=== PATIENT | female | born 2005 | race Hispanic/Latino ===

== ENCOUNTER 2025-03-13 21:07 | Emergency (ER) | payer SELFPAY ==
[~2025-03-13] VITALS: Ht 162.6 cm; Wt 57.2 kg
[2025-03-13 21:25] LABS: APPEARANCE,URINE CLEAR (CLEAR); GLUCOSE, URINE (UA) NEGATIVE (NEGATIVE); LEUKOCYTE ESTERASE ,URINE NEGATIVE Leu/uL (NEGATIVE); NITRATE,URINE NEGATIVE (NEGATIVE); OCCULT BLOOD,URINE NEGATIVE (NEGATIVE)
[2025-03-13 21:27] LABS: ADD UA MICROSCOPIC NO
[2025-03-13 21:28] LABS: HCG,QUALITATIVE URINE NEGATIVE (NEGATIVE)
[2025-03-13] MEDS: 0.9%NACL 1000ML 1,000 ML IV ONE (21:42)
[2025-03-13 21:44] LABS: IMMATURE GRANULOCYTE ABSOLUTE 0.04 K/uL (0-1); NUCLEATED RED BLOOD CELLS 0.0 % (0.0-0.19); PLATELET COUNT (AUTO) 281 K/uL (130-400); RED BLOOD CELL COUNT(AUTO) 4.56 MIL/uL (4.00-5.50); RED CELL DISTRIBUTION WIDTH 12.8 % (11.0-15.5); WHITE BLOOD COUNT (AUTO) 11.4 K/uL (4.8-10.8)
[2025-03-13 21:51] LABS: CREATININE 0.6 mg/dL (0.5-1.0); GLOMERULAR FILTR. RATE CALC 132.0 mL/min (>90); GLUCOSE,RANDOM 125.0 mg/dL (70-105); SODIUM SERUM 137.0 mmol/L (136-145); UREA NITROGEN, BLOOD 9.0 mg/dL (7-18)
--- NOTE | 2025-03-13 22:10 | ERN ---
ED Note History of Present Illness Stated Complaint: C/O LOWER ABD PAIN W/LOWER BACK PAIN Chief Complaint: Abdominal Pain Time Seen by MD: 21:10 Time Seen by Midlevel: 21:10 Dictation: The patient is a 20-year-old female with no past medical history who presents to the emergency department with complaints of suprapubic abdominal pain associated with nausea and constipation onset a week ago. Patient denies any vomiting, denies any fevers. Denies any urinary discomfort. Reports he had a bowel movement yesterday. Allergies: Coded Allergies: No Known Drug Allergies (Unverified Allergy, Unknown, 03/13/25) Past Medical History Past Medical History: No Pertinent History Surgical History: None LMP: Feb 23, 2025 RN Note Reviewed/Agreed w/PFSH: Yes Review of System Dictation Constitutional: Negative for fever,chills, and weight loss Eyes: Negative for injury, pain,redness, and discharge ENT: Negative for injury,pain or swelling Cardiovascular: Negative for chest pain, palpitations, and edema Respiratory: Negative for shortness of breath, cough, and wheezing, Abdomen/GI: Negative for vomiting, diarrhea, positive for abdominal pain, nausea, constipation Back: Negative for injury and pain : Negative for injury, bleeding and discharge MS/Extremity: Negative for injury and deformity Skin: Negative for rash, and discoloration Neuro: Negative for headache, weakness, numbness, tingling, and seizure Psych: Negative for suicide ideation, homicidal ideation, and hallucinations Initial Vital Sign VS Vital Signs Date Time Temp Pulse Resp B/P (MAP) Pulse Ox O2 Delivery O2 Flow Rate FiO2 03/13/25 21:10 98.6 91 20 137/77 100 Room Air 03/13/25 21:21 0 21 Physical Exam Dictation Vital Signs reviewed General Appearance: Alert, oriented x 3, no acute distress, well developed, nourished. Head and Face: non-traumatic. Eyes: PERRL, pink conjunctivas, eyelid no trauma, anterior chamber with arcus senilis. Ears: Pinnas intact and no signs of trauma or erythema ear canals clear and no discharge TM no erythema Nose: No discharge, no bleeding. Oropharynx: Mouth normal, tongue pink. pharynx clear,no erythema, tonsils no exudates, no abscesses noted, mucous membrane moist Neck: Supple, non-tender, no thyromegaly, no masses, no JVD, no bruits Breast:Deferred Chest:No tenderness, no crepitus, no paradoxical movement, no retractions Lungs:Clear, well-ventilated, symmetric, no rales, no wheezing, no rhonchi, no stridor, good breath sounds bilaterally Heart: Regular rate, regular rhythm, no murmur, no gallops Vascular: no peripheral edema, Abdomen: Soft, positive bowel sounds, nondistended, no guarding, nontender, no rebound, no masses no hepatomegaly, no splenomegaly, no Pryor's sign, no hernias. Rectal: Deferred Genital: Deferred Neurological: Normal speech, motor function intact, sensory function intact Musculoskeletal: Neck nontender, full range of motion, back nontender, full range of motion, Extremities: nontender, full range of motion Skin: Color pink, dry, no turgor, no rash, no lacerations, no abrasions, no contusions. Lymphatic: Deferred Results (Laboratory/Radiology) Laboratory/Radiology Laboratory Tests Test 03/13/25 21:15 03/13/25 21:30 Urine Color COLORLESS (YELLOW) Urine Appearance CLEAR (CLEAR) Urine pH 7.0 (5.0-8.0) Urine Specific [place] 1.004 (1.001-1.031) Urine Protein NEGATIVE mg/dL (NEGATIVE) Urine Glucose (UA) NEGATIVE mg/dL (NEGATIVE) Urine Ketones NEGATIVE mg/dL (NEGATIVE) Urine Occult Blood NEGATIVE (NEGATIVE) Urine Nitrate NEGATIVE (NEGATIVE) Urine Bilirubin NEGATIVE mg/dL (NEGATIVE) Urine Urobilinogen 0.2 mg/dL (0.2-1.0) Urine Leukocyte Esterase NEGATIVE Barb/uL Urine HCG, Qualitative NEGATIVE (NEGATIVE) White Blood Count 11.4 K/uL (4.8-10.8) H Red Blood Count 4.56 MIL/uL (4.00-5.50) Hemoglobin 13.2 g/dL (12.0-16.0) Hematocrit 40.3 % (36-48) Mean Corpuscular Volume 88.4 fL (80-100) Mean Corpuscular Hemoglobin 28.9 pg (27.0-33.0) Mean Corpuscular Hemoglobin Concent 32.8 g/dL (32.0-36.0) Red Cell Distribution Width 12.8 % (11.0-15.5) Platelet Count 281 K/uL (130-400) Mean Platelet Volume 11.7 fL (7.5-10.5) H Immature Granulocyte % (Auto) 0.4 % (0-1) Neutrophils (%) (Auto) 55.3 % (40.0-77.0) Lymphocytes (%) (Auto) 27.0 % (21.0-51.0) Monocytes (%) (Auto) 8.3 % (3.0-13.0) Eosinophils (%) (Auto) 8.4 % (0.0-8.0) H Basophils (%) (Auto) 0.6 % (0.0-5.0) Neutrophils # (Auto) 6.3 K/uL (1.8-7.7) Lymphocytes # (Auto) 3.1 K/uL (1.0-4.8) Monocytes # (Auto) 1.0 K/uL (0.1-1.0) Eosinophils # (Auto) 0.96 K/uL (0.00-0.70) H Basophils # (Auto) 0.07 K/uL (0.00-0.20) Absolute Immature Granulocyte (auto 0.04 K/uL (0-1) Nucleated Red Blood Cells 0.0 % (0.0-0.19) Sodium Level 137 mmol/L (136-145) Potassium Level 3.3 mmol/L (3.5-5.1) L Chloride Level 101 mmol/L (101-111) Carbon Dioxide Level 31 mmol/L (21-32) Blood Urea Nitrogen 9 mg/dL (7-18) Creatinine 0.6 mg/dL (0.5-1.0) Glomerular Filtration Rate Calc 132 mL/min (>90) Random Glucose 125 mg/dL (70-105) H Total Calcium 9.1 mg/dL (8.5-10.1) REASON: suprapubic abd pain ORDERING PHYSICIAN: KE RANKIN PROCEDURE: PELVCOMP - US PELVIC NON-OB COMP EXAM: US Pelvis, Complete. CLINICAL HISTORY: Suprapubic abdominal pain. TECHNIQUE: Transabdominal and transvaginal pelvic ultrasound with image documentation. COMPARISON: None provided. FINDINGS: UTERUS: 9.2 ??? 4.3 ??? 7.0 cm. Normal in size and appearance. No uterine fibroid or other focal lesion. ENDOMETRIUM: Thickness 9 mm. Within normal limits. RIGHT OVARY: 2.5 ??? 1.8 ??? 2.9 cm. Normal Doppler flow. Simple cyst measuring 3.3 ??? 4.3 ??? 2.5 cm. LEFT OVARY: 2.5 ??? 2.2 ??? 2.3 cm. Normal Doppler flow. No abnormal mass. CUL-DE-SAC: No free fluid. IMPRESSION: No acute abnormality. Right ovarian simple cyst. No ovarian torsion. /[place] REASON: constipation ORDERING PHYSICIAN: KE RANKIN PROCEDURE: ABD 1VW - ABD 1VW EXAM: CR Abdomen, 1 view CLINICAL HISTORY: Constipation. COMPARISON: None provided. FINDINGS: Nonobstructed nonspecific bowel gas pattern. A component of mild constipation is present in the colon. No free air is evident. No abnormal calcification. No aggressive appearing osseous lesion. IMPRESSION: No acute process. A component of mild constipation is present in the colon. /[place] Labs Reviewed?: Yes ED Course ED Course Orders Procedure Category Date Status Time Cbc With Differential LAB 03/13/25 Complete 21:17 ,Urine Test LAB 03/13/25 Complete 21:17 Urinalysis Profile LAB 03/13/25 Complete 21:17 0.9%Nacl 1000ml (Ns PHA 03/13/25 Complete 1000ml) 21:30 Ondansetron 4mg Inj PHA 03/13/25 Complete (Zofran 4mg Inj) 21:30 Basic Metabolic Panel LAB 03/13/25 Complete 21:17 Acetaminophen 500mg PHA 03/13/25 Complete Tab (Tylenol 500mg T 21:30 Abd 1vw RAD 03/13/25 Resulted 21:17 Us Pelvic Non-Ob Comp US 03/13/25 Resulted 21:17 Potassium Bicarb/Cit PHA 03/13/25 In Process Ac 25meq (K-Lyte Ta 23:30 Current Medications Medications (Trade) Dose Ordered Sig/Marce Route PRN Reason Start Time Stop Time Status Last Admin Dose Admin Acetaminophen (TYLenol 500MG TAB) 1,000 mg ONCE ONCE PO 03/13/25 21:30 03/13/25 21:36 DC 03/13/25 21:42 Ondansetron HCl (zoFRAN 4MG INJ) 4 mg ONCE ONCE IVP 03/13/25 21:30 03/13/25 21:36 DC 03/13/25 21:42 Potassium Bicarbonate (K-Lyte Tablet Eff 25 Meq Tablet.eff) 25 meq ONCE ONCE PO 03/13/25 23:30 03/13/25 23:31 Sodium Chloride 1,000 ml @ 0 mls/hr ONCE ONCE IV 03/13/25 21:30 03/13/25 21:36 DC 03/13/25 21:42 Vital Signs Date Time Temp Pulse Resp B/P (MAP) Pulse Ox O2 Delivery O2 Flow Rate FiO2 03/13/25 21:21 98.6 91 20 137/77 100 Room Air* 0 21 03/13/25 21:10 98.6 91 20 137/77 100 Room Air Medical Decision Making MDM The patient is a 20-year-old female with no past medical history who presents to the emergency department with complaints of suprapubic abdominal pain associated with nausea and constipation onset a week ago. Patient denies any vomiting, denies any fevers. Denies any urinary discomfort. Reports he had a bowel movement yesterday. CBC showed mild leukocytosis, no anemia, chemistry showed mild hypo kalemia. Urinalysis was unremarkable. Ultrasound revealed a right ovarian cyst with no signs of torsion. X-ray consistent with constipation. On physical exam patient is in no acute distress, has tolerated p.o. intake. Patient's abdomen is soft and nontender to palpation x2. patient will be discharged to follow up with OBGYN. Differential diagnosis: Constipation, ovarian cyst, UTI, electrolyte imbalance Need for hospitalization: Patient does not meet criteria for hospitalization. There are no social concerns with this patient. DX & DISP Disposition: Discharge Departure Impression: Primary Impression: Right ovarian cyst Additional Impression: Constipation Condition: Stable Scripts Meloxicam (Meloxicam) 15 Mg Tablet 1 TAB PO DAILY for pain for 15 Days, #15 TAB 0 Refills Prov: KE RANKIN MAIL MANAGER 03/13/25 Lactulose (Lactulose) 10 Gram/15 Ml Solution 30 ML PO DAILY for constipation, #500 ML 0 Refills Prov: KE RANKIN 03/13/25 Additional Instructions: Please follow up with your OBGYN in your primary doctor. Your labs were unremarkable except your potassium was slightly low which was replaced in the ER. Your ultrasound revealed a right ovarian cyst. Drink plenty of fluids and eat foods high in fiber like fruits. Please return to ER if abdominal pain becomes severe and is associated with fevers, nausea or vomiting. Otherwise follow up with your primary doctor. FOLLOW-UP WITH PRIMARY CARE PROVIDER IN 1 TO 2 DAYS. TAKE MEDICATIONS DIRECTED HERE IN THE EMERGENCY ROOM. OKAY TO CONTINUE HOME MEDICATIONS UNLESS OTHERWISE DISCUSSED DURING YOUR VISIT IN THE EMERGENCY ROOM TODAY. RETURN TO YOUR NEAREST EMERGENCY ROOM IF SYMPTOMS WORSEN OR IF THERE IS NO IMPROVEMENT. CALL 911 IF YOU NEED IMMEDIATE ASSISTANCE. TAKE TYLENOL [id number] NEEDED AND IF NO CONTRAINDICATIONS ARE PRESENT. INCREASE ORAL HYDRATION. A WOUND CULTURE OR URINE CULTURE WAS ORDERED HERE IN THE EMERGENCY ROOM DEPARTMENT PLEASE FOLLOW-UP WITH PRIMARY CARE PROVIDER AND ADVISE THEM TO GET REPEAT PORTS FROM OUR FACILITY. IF YOU HAD ANY [place] WRAP/SPLINTS THAT WERE APPLIED HERE, PLEASE DO NOT REMOVE THEM UNTIL YOU SEE YOUR PRIMARY CARE OR SPECIALTY. Referrals: SELF,REFERRAL (PCP) Time of Disposition: 23:19 I have reviewed the case, and I agree with, Diagnosis and Plan KE RANKIN MAIL MANAGER Mar 13, 2025 22:10
--- NOTE | 2025-03-13 23:14 | HMCIMG ---
EXAM: US Pelvis, Complete. CLINICAL HISTORY: Suprapubic abdominal pain. TECHNIQUE: Transabdominal and transvaginal pelvic ultrasound with image documentation. COMPARISON: None provided. FINDINGS: UTERUS: 9.2 ??? 4.3 ??? 7.0 cm. Normal in size and appearance. No uterine fibroid or other focal lesion. ENDOMETRIUM: Thickness 9 mm. Within normal limits. RIGHT OVARY: 2.5 ??? 1.8 ??? 2.9 cm. Normal Doppler flow. Simple cyst measuring 3.3 ??? 4.3 ??? 2.5 cm. LEFT OVARY: 2.5 ??? 2.2 ??? 2.3 cm. Normal Doppler flow. No abnormal mass. CUL-DE-SAC: No free fluid. IMPRESSION: No acute abnormality. Right ovarian simple cyst. No ovarian torsion. /[place]
--- NOTE | 2025-03-13 23:16 | HMCIMG ---
EXAM: CR Abdomen, 1 view CLINICAL HISTORY: Constipation. COMPARISON: None provided. FINDINGS: Nonobstructed nonspecific bowel gas pattern. A component of mild constipation is present in the colon. No free air is evident. No abnormal calcification. No aggressive appearing osseous lesion. IMPRESSION: No acute process. A component of mild constipation is present in the colon. /[place]
[2025-03-13] MEDS ORDERED: MELO-108 PO (23:20)
[2025-03-13] MEDS ORDERED: LACT-441 PO (23:20)
[2025-03-13 23:35] VITALS: BP 128/65; PULSE 85; RESP 18; TEMP 98.5; O2SAT 100
== END 2025-03-13 23:33 | disposition home or self-care (01) ==
LOC: EDH 21:07
DX: N83.201 Unspecified ovarian cyst, right side (principal); K59.00 Constipation, unspecified
CPT/HCPCS: 99285; 96374; 76856; 80048; 85025; 81003; 81025; 36415; 74018; J7030; J2405